=== PATIENT | female | born 1950 | race Caucasian/White ===

== ENCOUNTER 2019-09-09 10:08 | Emergency (ER) | payer MEDICARE ==
--- NOTE | 2019-09-09 10:21 | ERPHSYRPT ---
- History of Present Illness Time Seen by Provider: 09/09/19 10:21 Source: patient, EMS, [facility] records Exam Limitations: clinical condition Physician History: This is a 68-year-old morbidly obese, diabetic white female with a history of CVA, coronary artery disease, and hypertension and is a resident of [facility]. She presents via EMS with increasing confusion. Patient is in the [facility] because of morbid obesity, inability to care for herself, and in renal failure. Patient has been having chronic diarrhea recently. Patient makes a small amount of urine. Patient was due for renal dialysis today at her usual facility in [facility]. However, prior to 6 AM, patient was experiencing a change in her mental status. This is described as increased confusion. Patient did not arrive to our facility till 10:05 AM. We were contacted approximately an hour and a half prior to patient's arrival. Upon arrival to the emergency department, patient' s vital signs were stable, however patient's mental status was decreased. She would intermittently answer a few questions. She was able to move all her extremities. The patient was very lethargic. Patient is DNR Timing/Duration: today Severity: moderate Character of Deficits: new weakness, general (difuse) (Weakness) Deficits: bed-ridden Baseline/Normal Cognition: alert oriented x 3 Current Cognition: alert oriented x 3 Baseline Gait: unable to walk Associated Symptoms: confusion, weakness Allergies/Adverse Reactions: egg Allergy (Severe, Verified 09/09/19 10:56) Swelling morphine Allergy (Verified 04/15/16 15:41) red dye Allergy (Verified 04/15/16 15:41) Home Medications: Torsemide [Demadex] 40 mg PO BID 11/30/15 [History] Apixaban [Eliquis] 5 mg PO BID 01/29/16 [History] Baclofen 10 mg PO TID 01/29/16 [History] Ergocalciferol (Vitamin D2) [Vitamin D] 1 cap PO WEEKLY 01/29/16 [History] Multivitamin W-Minerals/Lutein [Centrum Silver Tablet] 1 tab PO DAILY 01/29/16 [ History] Sertraline HCl 100 mg [Zoloft 100 MG] 100 mg PO DAILY 01/29/16 [History] Simvastatin 40 mg PO DAILY 01/29/16 [History] Zwolle-3 Fatty Acids [Fish Oil] 300 mg PO DAILY 03/29/16 [History] Azelastine Nasal [Astelin Nasal] 30 ml NS DAILY 09/09/19 [History] Cyanocobalamin (Vitamin B-12) [B-12] 1,000 mcg PO DAILY 09/09/19 [History] Cyclosporine [Restasis] 1 each OP DAILY 09/09/19 [History] Diphenhydramine HCl [Banophen] 25 mg PO DAILY 09/09/19 [History] Ferric Citrate [Auryxia] 210 mg PO DAILY 09/09/19 [History] Ferrous Gluconate 324 mg PO TID 09/09/19 [History] Gabapentin [Neurontin] 100 mg PO BID 09/09/19 [History] Glipizide 5 mg [Glucotrol 5 MG] 5 mg PO DAILY 09/09/19 [History] Hydrocodone Bit/Acetaminophen [Hydrocodon-Acetaminoph 7.5-325] 1 each PO QID 03/20 [History] Loperamide HCl [Loperamide] 2 mg PO Q4-6HPRN PRN 09/09/19 [History] Loratadine 10 mg [Claritin 10 mg] 10 mg PO DAILY 09/09/19 [History] Lubiprostone [Amitiza] 24 mcg PO BID 09/09/19 [History] Melatonin/Pyridoxine HCl (B6) [Melatonin 3 mg Tablet] 1 each PO HS 09/09/19 [ History] Metolazone 2.5 mg [Zaroxolyn 2.5 MG] 2.5 mg PO DAILY 09/09/19 [History] Midodrine HCl 5 mg PO BID 09/09/19 [History] Sevelamer Carbonate [Renvela] 800 mg PO DAILY 09/09/19 [History] Sevelamer Carbonate [Renvela] 800 mg PO TID 09/09/19 [History] Tolterodine Tartrate [Detrol LA] 4 mg PO DAILY 09/09/19 [History] Hx Tetanus, Diphtheria Vaccination/Date Given: Yes Hx Influenza Vaccination/Date Given: Yes Hx Pneumococcal Vaccination/Date Given: Yes Travel Risk - International Travel Have you traveled outside of the country in past 3 weeks: No Have you or anyone close to you been diagnosed with or: No Do your reside in a community with a known COVID-19 case?: Yes If Yes where:: [facility] - Coronavirus Screening Symptoms experienced: weakness - Review of Systems Constitutional: Weakness Eyes: No Symptoms Ears, Nose, & Throat: No Symptoms Respiratory: No Symptoms Cardiac: No Symptoms Abdominal/Gastrointestinal: Diarrhea Genitourinary Symptoms: No Symptoms Musculoskeletal: No Symptoms Skin: No Symptoms Neurological: Other (Increased confusion) Psychological: No Symptoms Endocrine: No Symptoms Hematologic/Lymphatic: No Symptoms Immunological/Allergic: No Symptoms All Other Systems: Reviewed and Negative - Past Medical History Pertinent Past Medical History: Yes Neurological History: Stroke ENT History: Cataracts, Macular Degeneration Cardiac History: Coronary Artery Disease, High Cholesterol, Hypertension Respiratory History: No Pertinent History Endocrine Medical History: Diabetes Type II Musculoskeletal History: Degenerative Disk Disease, Osteoarthritis GI Medical History: GERD History: Renal Disease Psycho-Social History: Depression Female Reproductive Disorders: No Pertinent History - Past Surgical History Past Surgical History: Yes Neuro Surgical History: No Pertinent History Cardiac: No Pertinent History Respiratory: No Pertinent History Gastrointestinal: No Pertinent History Genitourinary: No Pertinent History Musculoskeletal: No Pertinent History Female Surgical History: Hysterectomy Other Surgical History: GASTRIC BYPASS - Social History Smoking Status: Unknown if ever smoked Exposure to second hand smoke: No Drug Use: none Patient Lives Alone: No ([place]) - Nursing Vital Signs Nursing Vital Signs: Initial Vital Signs Temperature 99.1 F 09/09/19 10:17 Pulse Rate 75 09/09/19 10:17 Respiratory Rate 22 09/09/19 10:17 Blood Pressure 124/78 09/09/19 10:17 O2 Sat by Pulse Oximetry 99 09/09/19 10:17 Pain Scale Pain Intensity 4 - Miguel Coma Scale Best Eye Response (Miguel): (3) open to voice Best Verbal Response (Miguel): (4) confused conversation Best Motor Response (Miguel): (5) localizes to pain [place] Total: 12 - Physical Exam General Appearance: lethargy, obese Eye Exam: bilateral eye: normal inspection, PERRL, EOMI Ears, Nose, Throat Exam: normal ENT inspection, TMs normal, dry mucous membranes Neck Exam: normal inspection, non-tender, supple, full range of motion Respiratory: normal breath sounds, lungs clear, airway intact, No chest tenderness, No respiratory distress Cardiovascular: regular rate/rhythm, normal heart sounds, normal peripheral pulses Gastrointestinal: soft, normal bowel sounds, No tenderness, No guarding, No rebound Pelvic Exam: not done Rectal Exam: not done Back Exam: normal inspection, normal range of motion, No CVA tenderness, No vertebral tenderness Extremity Exam: normal inspection, normal range of motion, pelvis stable 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: 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, tongue midline Skin Exam: normal color, warm, dry SpO2 Interpretation: borderline oxygenation O2 Delivery: Room Air - Course Nursing assessment & vital signs reviewed: Yes Ordered Tests: Active Orders 24 hr Category Date Time Status Mold Polisher STAT Care 09/09/19 10:34 Active Catheter-Boring Spear STAT Care 09/09/19 10:31 Active IV Insertion STAT Care 09/09/19 10:31 Active NPO (ED) STAT Care 09/09/19 10:32 Active Pulse Oximetry (ED) STAT Care 09/09/19 10:31 Active CHEST 1 VIEW (PORTABLE) Stat Exams 09/09/19 11:11 Completed HEAD WITHOUT CONTRAST [CT] Stat Exams 09/09/19 10:34 Completed BLOOD CULTURE Stat Lab 09/09/19 11:52 Ordered CBC W DIFF Stat Lab 09/09/19 10:50 Completed CMP Stat Lab 09/09/19 10:50 Completed CULTURE,URINE Stat Lab 09/09/19 10:50 Received Lactic Acid Stat Lab 09/09/19 10:41 Completed PROTIME WITH INR Stat Lab 09/09/19 10:50 Completed UA W/RFX UR CULTURE Stat Lab 09/09/19 10:50 Completed Medication Summary Discontinued Medications Generic Name Dose Route Start Last Admin Trade Name Jignesh PRN Reason Stop Dose Admin Ceftriaxone Sodium/Dextrose 1 g in 50 mls @ 100 mls/hr 09/09/19 11:51 11:55 Rocephin 1 Gm-D5w 50 Ml Bag IV 09/09/19 12:20 200 mls/hr STAT ONE 200 mls/hr Administration Ceftriaxone Sodium/Dextrose Confirm 09/09/19 11:54 Rocephin 1 Gm-D5w 50 Ml Bag Administered 09/09/19 11:55 Dose 1 g in 50 mls @ ud IV .STK-MED ONE Lab/Rad Data: Laboratory Result Diagrams 09/09/19 10:50 09/09/19 10:50 Laboratory Results 09/09/19 09/09/19 09/09/19 Range/Units 10:50 10:50 10:50 WBC (4.0-10.5) K/mm3 RBC (4.1-5.4) M/mm3 Hgb (12.0-16.0) gm/dl Hct (35-47) % MCV (78-100) fl MCH (26-32) pg MCHC (32-36) g/dl RDW (11.5-14.0) % Plt Count (150-450) K/mm3 MPV (7.5-11.0) fl Gran % (36.0-66.0) % Eos # (Auto) (0-0.5) Absolute Lymphs (auto) (1.0-4.6) Absolute Monos (auto) (0.0-1.3) Lymphocytes % (24.0-44.0) % Monocytes % (0.0-12.0) % Eosinophils % (0.00-5.0) % Basophils % (0.0-0.4) % Absolute Granulocytes (1.4-6.9) Basophils # (0-0.4) PT 16.5 H (9.95-12.35) SECONDS INR 1.45 (0.8-3.0) Sodium 139 (137-145) mmol/L Potassium 3.4 L (3.5-5.1) mmol/L Chloride 100 (98-107) mmol/L Carbon Dioxide 19 L (22-30) mmol/L Anion Gap 22.9 H (5-15) MEQ/L BUN 72 H (7-17) mg/dL Creatinine 7.26 H (0.52-1.04) mg/dL Estimated GFR 5.9 ML/MIN Glucose 92 (74-106) mg/dL Lactic Acid (0.4-2.0) Calcium 8.2 L (8.4-10.2) mg/dL Total Bilirubin 0.60 (0.2-1.3) mg/dL AST 21 (14-36) U/L ALT 11 (0-35) U/L Alkaline Phosphatase 101 (38-126) U/L Serum Total Protein 7.5 (6.3-8.2) g/dL Albumin 4.1 (3.5-5.0) g/dL Urine Color DARK YELLOW (YELLOW) Urine Appearance TURBID (CLEAR) Urine pH 7.0 (5-6) Ur Specific Hardin 1.010 (1.005-1.025) Urine Protein 30 (Negative) Urine Ketones NEGATIVE (NEGATIVE) Urine Blood SMALL (0-5) Isaak/ul Urine Nitrite NEGATIVE (NEGATIVE) Urine Bilirubin NEGATIVE (NEGATIVE) Urine Urobilinogen NEGATIVE (0-1) mg/dL Ur Leukocyte Esterase LARGE (NEGATIVE) Urine WBC (Auto) >100 (0-5) /HPF Urine RBC (Auto) 6-10 (0-2) /HPF U Epithel Cells (Auto) RARE (FEW) /HPF Urine Bacteria (Auto) PACKED (NEGATIVE) /HPF Urine Mucus (Auto) SLIGHT (NEGATIVE) /HPF Urine Culture Reflexed ORDERED SEPARATELY (NO) Urine Glucose NEGATIVE (NEGATIVE) mg/dL 09/09/19 09/09/19 Range/Units 10:50 10:41 WBC 9.9 (4.0-10.5) K/mm3 RBC 3.35 L (4.1-5.4) M/mm3 Hgb 10.7 L (12.0-16.0) gm/dl Hct 35.5 (35-47) % MCV 106.0 H (78-100) fl MCH 31.9 (26-32) pg MCHC 30.1 L (32-36) g/dl RDW 15.1 H (11.5-14.0) % Plt Count 209 (150-450) K/mm3 MPV 10.4 (7.5-11.0) fl Gran % 79.6 H (36.0-66.0) % Eos # (Auto) 0.17 (0-0.5) Absolute Lymphs (auto) 1.00 (1.0-4.6) Absolute Monos (auto) 0.83 (0.0-1.3) Lymphocytes % 10.1 L (24.0-44.0) % Monocytes % 8.4 (0.0-12.0) % Eosinophils % 1.7 (0.00-5.0) % Basophils % 0.2 (0.0-0.4) % Absolute Granulocytes 7.84 H (1.4-6.9) Basophils # 0.02 (0-0.4) PT (9.95-12.35) SECONDS INR (0.8-3.0) Sodium (137-145) mmol/L Potassium (3.5-5.1) mmol/L Chloride (98-107) mmol/L Carbon Dioxide (22-30) mmol/L Anion Gap (5-15) MEQ/L BUN (7-17) mg/dL Creatinine (0.52-1.04) mg/dL Estimated GFR ML/MIN Glucose (74-106) mg/dL Lactic Acid 0.9 (0.4-2.0) Calcium (8.4-10.2) mg/dL Total Bilirubin (0.2-1.3) mg/dL AST (14-36) U/L ALT (0-35) U/L Alkaline Phosphatase (38-126) U/L Serum Total Protein (6.3-8.2) g/dL Albumin (3.5-5.0) g/dL Urine Color (YELLOW) Urine Appearance (CLEAR) Urine pH (5-6) Ur Specific Hardin (1.005-1.025) Urine Protein (Negative) Urine Ketones (NEGATIVE) Urine Blood (0-5) Isaak/ul Urine Nitrite (NEGATIVE) Urine Bilirubin (NEGATIVE) Urine Urobilinogen (0-1) mg/dL Ur Leukocyte Esterase (NEGATIVE) Urine WBC (Auto) (0-5) /HPF Urine RBC (Auto) (0-2) /HPF U Epithel Cells (Auto) (FEW) /HPF Urine Bacteria (Auto) (NEGATIVE) /HPF Urine Mucus (Auto) (NEGATIVE) /HPF Urine Culture Reflexed (NO) Urine Glucose (NEGATIVE) mg/dL - Progress Progress Note: 09/09/19 11:13 CAT scan of the head reveals no acute intracranial findings. There is senile brain. Old right temporoparietal infarct 09/09/19 11:48 Chest x-ray shows stable cardiomegaly. There is no evidence of any pneumonic process or signs of CHF. 09/09/19 12:19 Medical decision making: This patient has renal failure and is in need of dialysis. She was brought here because of confusion. Patient has a significant urinary tract infection which may be causing her lethargy. The CAT scan of her head does not show any acute intracranial findings suggesting a cerebrovascular accident that is acute. 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 We are treating her urinary tract infection with Rocephin. - Departure Departure Disposition: Transfer Clinical Impression: Urinary tract infection, Confusion, Lethargy, Renal failure Condition: Fair Critical Care Time: Yes Critical Care Time(excluding separately billable procedures): Critical 30-74 mins Referrals: KAREN BENDER [Primary Care Provider] -
[2019-09-09 10:52] LABS: Absolute Neutrophil Ct (ANC) 7.84 (1.4-6.9); BASOPHIL % 0.2 % (0.0-0.4); Basophil (Absolute #) 0.02 (0-0.4); Eosinophil % 1.7 % (0.00-5.0); Eosinophil (Absolute #) 0.17 (0-0.5); Hematocrit 35.5 % (35-47); Hemoglobin 10.7 gm/dl (12.0-16.0); Lymphocytes % 10.1 % (24.0-44.0); Mean Corpuscular Hemoglobin 31.9 pg (26-32); Mean Corpuscular Hgb Concent. 30.1 g/dl (32-36); Mean Platelet Volume 10.4 fl (7.5-11.0); Monocyte (Absolute #) 0.83 (0.0-1.3); Monocytes % 8.4 % (0.0-12.0); Neutrophil % 79.6 % (36.0-66.0); Platelet Count 209 K/mm3 (150-450); Red Blood Count 3.35 M/mm3 (4.1-5.4); Red Cell Distribution Width 15.1 % (11.5-14.0); White Blood Count 9.9 K/mm3 (4.0-10.5)
[2019-09-09 10:58] LABS: Appearance TURBID (CLEAR); Bacteria PACKED /HPF (NEGATIVE); Bilirubin NEGATIVE (NEGATIVE); Blood SMALL Ery/ul (0-5); Epithelial Cells RARE /HPF (FEW); Glucose NEGATIVE (NEGATIVE); Ketones NEGATIVE (NEGATIVE); Leukocyte Esterase LARGE (NEGATIVE); Mucus SLIGHT /HPF (NEGATIVE); Nitrite NEGATIVE (NEGATIVE); Protein,Urine Dip 30 (Negative); Urobilinogen NEGATIVE mg/dL (0-1); WBC >100 /HPF (0-5)
[2019-09-09 11:02] LABS: INR 1.45 (0.8-3.0); PROTIME 16.5 SECONDS (9.95-12.35)
[2019-09-09 11:07] LABS: ALBUMIN 4.1 g/dL (3.5-5.0); ANION GAP 22.9 MEQ/L (5-15); BILIRUBIN,TOTAL 0.6 mg/dL (0.2-1.3); Calcium 8.2 mg/dL (8.4-10.2); Creatinine 1 7.26 mg/dL (0.52-1.04); Potassium 3.4 mmol/L (3.5-5.1); Total Protein 7.5 g/dL (6.3-8.2)
--- NOTE | 2019-09-09 11:20 | XRAY ---
Indication: Fever and confusion. Multiple contiguous axial images obtained through the head without contrast. Comparison: April 15, 2016. There is again age-appropriate global atrophy, minimal periventricular degenerative micro-ischemia, and small focus old right posterior temporoparietal infarct. Again no acute intracranial hemorrhage, hydrocephalus, or mass effect. Fourth ventricle is midline. Bony calvarium intact. Visualized paranasal sinuses and mastoid air cells are clear. Impression: Continued nonacute senile brain with old right temporoparietal infarct.
--- NOTE | 2019-09-09 11:23 | XRAY ---
Indication: Cough. Comparison: April 15, 2016. Portable chest again demonstrates cardiomegaly with new left midlung fibrosis/scarring. No focal infiltrate, consolidation, or large effusion. Bony thorax intact again with mild degenerative changes. Impression: Stable cardiomegaly. Negative for acute pneumonic process or CHF.
[2019-09-09] MEDS ORDERED: ROCEPHIN 1 Gm-D5w 50 ml Bag** 1 G/50 ML IVPB IV ONE ×2 (11:51→11:54)
[2019-09-09 13:14] VITALS: BP 103/68; PULSE 77; O2SAT 95
== END 2019-09-09 13:18 | disposition short-term general hospital (02) ==
LOC: ED 10:08
DX: N39.0 Urinary tract infection, site not specified (principal); R41.0 Disorientation, unspecified; R53.83 Other fatigue; N19 Unspecified kidney failure; I10 Essential (primary) hypertension; I25.10 Atherosclerotic heart disease of native coronary artery without angina pectoris; E78.00 Pure hypercholesterolemia, unspecified; K21.9 Gastro-esophageal reflux disease without esophagitis; M19.90 Unspecified osteoarthritis, unspecified site; F32.9 Major depressive disorder, single episode, unspecified
CPT/HCPCS: 36000; 36415; 51702; 70450; 71045; 80053; 81001; 82140; 83605; 85025; 85610; 87040; 87077; 87086; 87186; 93041; 94760; 96365; 99285; 99291; J0696

== ENCOUNTER 2020-10-07 07:02 | Emergency (ER) | payer MEDICARE ==
--- NOTE | 2020-10-07 07:23 | ERPHSYRPT ---
- History of Present Illness Time Seen by Provider: 10/07/20 07:10 Source: EMS, long term records, old records Exam Limitations: clinical condition Physician History: This is a 70-year-old morbidly obese female resident of [facility] who was brought in by EMS service for altered level of consciousness and hypotension. Patient symptoms actually started last evening approximately 10 PM per long term notes. She was complaining of nausea vomiting and weakness. Patient undergoes Monday and Monday renal dialysis. She did go to her last dialysis session. Patient has a history of diabetes, acute CVA, coronary artery disease, hypertension and chronic anemia. Patient is a DNR status. Patient arrives very lethargic. She responds to painful stimuli but does not answer questions or follow directions. Patient is on Eliquis. Timing/Duration: today Severity: moderate Associated Symptoms: denies symptoms Allergies/Adverse Reactions: egg Allergy (Severe, Verified 10/07/20 08:04) Swelling morphine Allergy (Verified 10/07/20 08:04) red dye Allergy (Verified 10/07/20 08:04) Home Medications: Apixaban [Eliquis] 2.5 mg PO BID 01/29/16 [History] Baclofen 10 mg PO BID 01/29/16 [History] Ergocalciferol (Vitamin D2) [Vitamin D] 1 cap PO WEEKLY 01/29/16 [History] Multivitamin W-Minerals/Lutein [Centrum Silver Tablet] 1 tab PO DAILY 01/29/16 [History] Azelastine Nasal [Astelin Nasal] 1 spray NS DAILY 09/09/19 [History] Cyanocobalamin (Vitamin B-12) [B-12] 1,000 mcg SQ UD 09/09/19 [History] Diphenhydramine HCl [Banophen] 25 mg PO BID 09/09/19 [History] Ferrous Gluconate 324 mg PO TID 09/09/19 [History] Gabapentin [Neurontin] 200 mg PO TID 09/09/19 [History] Glipizide 5 mg [Glucotrol 5 MG] 5 mg PO DAILY 09/09/19 [History] Loperamide HCl [Loperamide] 2 mg PO Q4-6HPRN PRN 09/09/19 [History] Loratadine 10 mg [Claritin 10 mg] 10 mg PO DAILY 09/09/19 [History] Midodrine HCl 10 mg PO TID 09/09/19 [History] Sevelamer Carbonate [Renvela] 2,400 mg PO TIDWM 09/09/19 [History] Sevelamer Carbonate [Renvela] 800 mg PO HS 09/09/19 [History] Tolterodine Tartrate [Detrol LA] 4 mg PO DAILY 09/09/19 [History] Allopurinol 300 mg [Zyloprim 300 mg] 300 mg PO DAILY 10/07/20 [History] Cyclosporine [Restasis] 1 each OP BID 10/07/20 [History] Duloxetine HCl 30 mg [Cymbalta 30 MG Capsule] 30 mg PO DAILY 10/07/20 [History] Famotidine [Pepcid] 40 mg PO BID 10/07/20 [History] Guaifenesin [Mucus Relief] 200 mg PO BID 10/07/20 [History] Linaclotide [Linzess] 145 mcg PO DAILY 10/07/20 [History] Loratadine 10 mg [Claritin 10 mg] 10 mg PO DAILY 10/07/20 [History] Metolazone 2.5 mg [Zaroxolyn 2.5 MG] 2.5 mg PO BID 10/07/20 [History] [place]-3/Dha/Epa/Fish Oil [Fish Oil 500 mg Softgel] 2 each PO DAILY 10/07/20 [History] Simvastatin [Zocor] 40 mg PO HS 10/07/20 [History] Sucroferric Oxyhydroxide [Velphoro] 1,000 mg PO TIDWM 10/07/20 [History] Sulfamethoxazole/Trimethoprim [Bactrim 400-80 mg Tablet] 1 each PO DAILY 10/07/20 [History] Hx Tetanus, Diphtheria Vaccination/Date Given: Yes Hx Influenza Vaccination/Date Given: Yes Hx Pneumococcal Vaccination/Date Given: Yes Travel Risk - International Travel Have you traveled outside of the country in past 3 weeks: No - Coronavirus Screening Are you exhibiting any of the following symptoms?: No Close contact with a COVID-19 positive Pt in past 14-21 Days: No - Review of Systems Constitutional: Lethargy Eyes: No Symptoms Ears, Nose, & Throat: No Symptoms Respiratory: No Symptoms Cardiac: No Symptoms Abdominal/Gastrointestinal: No Symptoms Genitourinary Symptoms: No Symptoms Musculoskeletal: No Symptoms Skin: No Symptoms Neurological: Lethargy Psychological: No Symptoms Endocrine: No Symptoms Hematologic/Lymphatic: No Symptoms Immunological/Allergic: No Symptoms All Other Systems: Reviewed and Negative - Past Medical History Pertinent Past Medical History: Yes Neurological History: Stroke ENT History: Cataracts, Macular Degeneration Cardiac History: Coronary Artery Disease, High Cholesterol, Hypertension Respiratory History: No Pertinent History Endocrine Medical History: Diabetes Type II Musculoskeletal History: Degenerative Disk Disease, Osteoarthritis GI Medical History: GERD History: Renal Disease Psycho-Social History: Depression Female Reproductive Disorders: No Pertinent History - Past Surgical History Past Surgical History: Yes Neuro Surgical History: No Pertinent History Cardiac: No Pertinent History Respiratory: No Pertinent History Gastrointestinal: No Pertinent History Genitourinary: No Pertinent History Musculoskeletal: No Pertinent History Female Surgical History: Hysterectomy Other Surgical History: GASTRIC BYPASS - Social History Smoking Status: Unknown if ever smoked Exposure to second hand smoke: No Drug Use: none Patient Lives Alone: No ([place]) - Nursing Vital Signs Nursing Vital Signs: Initial Vital Signs Temperature 99.5 F 10/07/20 07:22 Pulse Rate 105 H 10/07/20 07:22 Blood Pressure 80/40 10/07/20 07:22 O2 Sat by Pulse Oximetry 95 10/07/20 07:22 Pain Scale Pain Intensity 0 - Physical Exam General Appearance: lethargy, obese Eye Exam: PERRL/EOMI, eyes nml inspection Ears, Nose, Throat Exam: dry mucous membranes Neck Exam: normal inspection, non-tender, supple, full range of motion Respiratory Exam: normal breath sounds, lungs clear, airway intact, No chest tenderness, No respiratory distress Cardiovascular Exam: regular rate/rhythm, normal heart sounds, normal peripheral pulses Gastrointestinal/Abdomen Exam: distention Pelvic Exam: not done Rectal Exam: not done Back Exam: normal inspection, No CVA tenderness, No vertebral tenderness Extremity Exam: normal inspection, normal range of motion, pelvis stable Neurologic Exam: other (Responds to painful stimuli. Moves all extremities randomly. Does not follow directions. Does not answer questions) Skin Exam: pale (Dentalized) Lymphatic Exam: No adenopathy SpO2 Interpretation: normal O2 Delivery: Room Air - Course Nursing assessment & vital signs reviewed: Yes EKG Interpreted by Me: RATE (96), A-fib (This is persistent when compared to EKG dated 04/15/2016), LAFB (This is new when compared to the EKG dated 04/15/2016), Other (Low voltage is persistent when compared to EKG 04/15/2016. There is no evidence of any acute ischemic changes on today's EKG.) Ordered Tests: Active Orders 24 hr Category Date Time Status EKG-ER Only STAT Care 10/07/20 07:23 Active IV Insertion STAT Care 10/07/20 07:23 Active NPO (ED) STAT Care 10/07/20 07:23 Active Pulse Oximetry (ED) STAT Care 10/07/20 07:23 Active ABDOMEN AND PELVIS W/0 CONTRAS [CT] Stat Exams 10/07/20 08:20 Completed CHEST 1 VIEW (PORTABLE) Stat Exams 10/07/20 07:24 Completed HEAD WITHOUT CONTRAST [CT] Stat Exams 10/07/20 07:24 Completed AMYLASE Stat Lab 10/07/20 07:52 Completed CBC W DIFF Stat Lab 10/07/20 08:10 Results CMP Stat Lab 10/07/20 07:52 Completed CULTURE,URINE Stat Lab 10/07/20 07:24 Ordered LIPASE Stat Lab 10/07/20 07:52 Completed Lactic Acid Stat Lab 10/07/20 07:25 Completed Lactic Acid Stat Lab 10/07/20 10:07 Completed Manual Differential NC Stat Lab 10/07/20 08:10 Results POCT GLUCOSE Stat Lab 10/07/20 10:17 Completed Pathologist Review Stat Lab 10/07/20 08:10 Results TROPONIN Q3H Lab 10/07/20 07:52 Completed TROPONIN Q3H Lab 10/07/20 10:50 Received TROPONIN Q3H Lab 10/07/20 13:30 Ordered TROPONIN Q3H Lab 10/07/20 16:30 Ordered TROPONIN Q3H Lab 10/07/20 19:30 Ordered UA W/RFX UR CULTURE Stat Lab 10/07/20 07:23 Ordered Medication Summary Generic Name Dose Route Start Last Admin Trade Name Freq PRN Reason Stop Dose Admin Sodium Chloride 1,000 mls @ 100 mls/hr 10/07/20 07:30 10/07/20 08:23 Sodium Chloride 0.9% 1000 Ml IV 11/06/20 07:29 100 mls/hr .Q10H KAYODE Administration Discontinued Medications Generic Name Dose Route Start Last Admin Trade Name Jignesh PRN Reason Stop Dose Admin Dextrose 50 ml 10/07/20 08:22 10/07/20 10:05 D50w 50 Ml Abboject IV 10/07/20 08:23 50 ml STAT ONE Administration Dextrose Confirm 10/07/20 08:22 D50w 50 Ml Abboject Administered 10/07/20 08:23 Dose 50 ml IV .STK-MED ONE Meropenem 1 g/ Sodium Chloride 100 mls @ 200 mls/hr 10/07/20 08:22 10/07/20 08:27 IV 10/07/20 08:51 200 mls/hr STAT ONE Administration Sodium Chloride Confirm 10/07/20 08:27 Sodium Chloride 100ml Mini-Bag Plus Administered 10/07/20 08:28 Dose 100 mls @ ud IV .STK-MED ONE Meropenem Confirm 10/07/20 08:26 Merrem 1 Gm Administered 10/07/20 08:27 Dose 1 g IV .STK-MED ONE Lab/Rad Data: Laboratory Result Diagrams 10/07/20 08:10 10/07/20 07:52 Laboratory Results 10/07/20 10/07/20 10/07/20 Range/Units 10:17 10:07 08:10 WBC 32.6 H* (4.0-10.5) K/mm3 RBC 3.43 L (4.1-5.4) M/mm3 Hgb 10.6 L (12.0-16.0) gm/dl Hct 36.8 (35-47) % MCV 107.3 H (78-100) fl MCH 30.9 (26-32) pg MCHC 28.8 L (32-36) g/dl RDW 18.1 H (11.5-14.0) % Plt Count 159 (150-450) K/mm3 MPV 10.7 (7.5-11.0) fl Segmented Neutrophils 72 H (36.0-66.0) % Band Neutrophils 20 H (0.0-2.0) % Lymphocytes (Manual) 6 L (24-44) % Monocytes (Manual) 2 (0.0-12.0) % Toxic Granulation 2+ Platelet Estimate NORMAL (NORMAL) RBC Morphology ABNORMAL Polychromasia 1+ Anisocytosis 1+ Smear Path Review Pending Sodium (137-145) mmol/L Potassium (3.5-5.1) mmol/L Chloride (98-107) mmol/L Carbon Dioxide (22-30) mmol/L Anion Gap (5-15) MEQ/L BUN (7-17) mg/dL Creatinine (0.52-1.04) mg/dL Estimated GFR ML/MIN Glucose (74-106) mg/dL POC Glucometer 98 (74 to 106) mg/dL Lactic Acid 4.2 H (0.4-2.0) Calcium (8.4-10.2) mg/dL Total Bilirubin (0.2-1.3) mg/dL AST (14-36) U/L ALT (0-35) U/L Alkaline Phosphatase (38-126) U/L Ammonia (9-30) umol/L Troponin I (0.000-0.034) ng/mL Serum Total Protein (6.3-8.2) g/dL Albumin (3.5-5.0) g/dL Amylase (30-110) U/L Lipase (23-300) U/L 10/07/20 10/07/20 10/07/20 Range/Units 07:52 07:52 07:52 WBC (4.0-10.5) K/mm3 RBC (4.1-5.4) M/mm3 Hgb (12.0-16.0) gm/dl Hct (35-47) % MCV (78-100) fl MCH (26-32) pg MCHC (32-36) g/dl RDW (11.5-14.0) % Plt Count (150-450) K/mm3 MPV (7.5-11.0) fl Segmented Neutrophils (36.0-66.0) % Band Neutrophils (0.0-2.0) % Lymphocytes (Manual) (24-44) % Monocytes (Manual) (0.0-12.0) % Toxic Granulation Platelet Estimate (NORMAL) RBC Morphology Polychromasia Anisocytosis Smear Path Review Sodium 136 L (137-145) mmol/L Potassium 3.5 (3.5-5.1) mmol/L Chloride 96 L (98-107) mmol/L Carbon Dioxide 25 (22-30) mmol/L Anion Gap 18.4 H (5-15) MEQ/L BUN 34 H (7-17) mg/dL Creatinine 4.08 H (0.52-1.04) mg/dL Estimated GFR 11.4 ML/MIN Glucose 58 L (74-106) mg/dL POC Glucometer (74 to 106) mg/dL Lactic Acid (0.4-2.0) Calcium 9.2 (8.4-10.2) mg/dL Total Bilirubin 4.40 H (0.2-1.3) mg/dL AST 161 H (14-36) U/L ALT 79 H (0-35) U/L Alkaline Phosphatase 448 H (38-126) U/L Ammonia 19 (9-30) umol/L Troponin I 0.077 H* (0.000-0.034) ng/mL Serum Total Protein 6.4 (6.3-8.2) g/dL Albumin 3.5 (3.5-5.0) g/dL Amylase 242 H (30-110) U/L Lipase 1152 H (23-300) U/L 10/07/20 Range/Units 07:25 WBC (4.0-10.5) K/mm3 RBC (4.1-5.4) M/mm3 Hgb (12.0-16.0) gm/dl Hct (35-47) % MCV (78-100) fl MCH (26-32) pg MCHC (32-36) g/dl RDW (11.5-14.0) % Plt Count (150-450) K/mm3 MPV (7.5-11.0) fl Segmented Neutrophils (36.0-66.0) % Band Neutrophils (0.0-2.0) % Lymphocytes (Manual) (24-44) % Monocytes (Manual) (0.0-12.0) % Toxic Granulation Platelet Estimate (NORMAL) RBC Morphology Polychromasia Anisocytosis Smear Path Review Sodium (137-145) mmol/L Potassium (3.5-5.1) mmol/L Chloride (98-107) mmol/L Carbon Dioxide (22-30) mmol/L Anion Gap (5-15) MEQ/L BUN (7-17) mg/dL Creatinine (0.52-1.04) mg/dL Estimated GFR ML/MIN Glucose (74-106) mg/dL POC Glucometer (74 to 106) mg/dL Lactic Acid 3.7 H (0.4-2.0) Calcium (8.4-10.2) mg/dL Total Bilirubin (0.2-1.3) mg/dL AST (14-36) U/L ALT (0-35) U/L Alkaline Phosphatase (38-126) U/L Ammonia (9-30) umol/L Troponin I (0.000-0.034) ng/mL Serum Total Protein (6.3-8.2) g/dL Albumin (3.5-5.0) g/dL Amylase (30-110) U/L Lipase (23-300) U/L - Progress Progress: unchanged Progress Note: 10/07/20 08:56 CAT scan of the abdomen and pelvis without contrast shows mild fecal stasis and distended urinary bladder. CAT scan of the head without contrast shows motion artifact. Grossly nonacute senile brain. Old right temporal and old right parietal infarct. Chest x-ray shows cardiomegaly, scarring and chronic changes. 10/07/20 11:23 Medical decision making: This patient requires transfer to a facility where they have cardiology, infectious disease, nephrology, cardiology and the ability to perform kidney dialysis. Patient is moving all her extremities now and is slightly responsive. I spoke with Dr. Davalos, the patient's tipple oiler. He accepts the patient in transfer to [facility] in [facility]. Discussed with .: Other (Dexter (tipple oiler)) - Departure Clinical Impression: Altered mental status, Hypotension, Renal failure, Elevated liver enzymes, Leukocytosis, Sepsis associated hypotension, Pancreatitis Condition: Critical Critical Care Time: Yes Critical Care Time(excluding separately billable procedures): Critical 75-104 mins Referrals: KAREN BENDER [Primary Care Provider] -
[2020-10-07] MEDS ORDERED: Sodium Chloride 0.9% 1000 ML 1,000 ML IV SCH ×2 (07:30→13:15)
[2020-10-07 08:07] LABS: Hematocrit 36.8 % (35-47); Hemoglobin 10.6 gm/dl (12.0-16.0); Mean Cell Volume 107.3 fl (78-100); Mean Corpuscular Hemoglobin 30.9 pg (26-32); Mean Corpuscular Hgb Concent. 28.8 g/dl (32-36); Mean Platelet Volume 10.7 fl (7.5-11.0); Platelet Count 159 K/mm3 (150-450); Red Blood Count 3.43 M/mm3 (4.1-5.4); Red Cell Distribution Width 18.1 % (11.5-14.0)
[2020-10-07 08:14] LABS: White Blood Count 32.6 K/mm3 (4.0-10.5)
[2020-10-07] MEDS ORDERED: Sodium Chloride 0.9% 1000 ML 1,000 ML ONE ×2 (08:21→13:16)
[2020-10-07] MEDS ORDERED: Merrem 1 GM 1 G in Sodium Chloride 100ML MINI-BAG PLUS 100 ML IV ONE (08:22)
[2020-10-07] MEDS ORDERED: D50W 50 ml Abboject IV ONE ×2 (08:22)
[2020-10-07 08:24] LABS: ALBUMIN 3.5 g/dL (3.5-5.0); ANION GAP 18.4 MEQ/L (5-15); BILIRUBIN,TOTAL 4.4 mg/dL (0.2-1.3); Calcium 9.2 mg/dL (8.4-10.2); Creatinine 1 4.08 mg/dL (0.52-1.04); EST GLOMERULAR FILTRATION RATE 11.4 ML/MIN; Potassium 3.5 mmol/L (3.5-5.1); Total Protein 6.4 g/dL (6.3-8.2)
[2020-10-07] MEDS ORDERED: Merrem 1 GM IV ONE (08:26)
[2020-10-07] MEDS ORDERED: Sodium Chloride 100ML MINI-BAG PLUS 100 ML IV ONE (08:27)
--- NOTE | 2020-10-07 08:34 | XRAY ---
Indication: Acute mental status change. Multiple contiguous axial images obtained through the head without contrast. Comparison: September 09, 2019. Study slightly degraded by motion artifact. There is again age-appropriate global atrophy, mild periventricular degenerative micro-ischemia, and small focus old right posterior temporoparietal infarct. New finding small old infarct right parietal lobe posteriorly. Again no acute intracranial hemorrhage, hydrocephalus, or mass effect. Fourth ventricle is midline. Bony calvarium intact. Visualized paranasal sinuses and mastoid air cells are clear. Impression: Motion artifact. Grossly nonacute senile brain with old right temporal and right parietal infarcts.
--- NOTE | 2020-10-07 08:42 | XRAY ---
Indication: Abdomen bloating. Renal failure. Multiple contiguous axial images obtained through the abdomen and pelvis without contrast. Comparison: None Beam artifact from patient's arms and mild respiration artifact. Lung bases demonstrates bilateral subsegmental atelectasis/scarring and tiny left effusion. Heart is enlarged. Previous bariatric surgery. Noncontrasted stomach and bowel loops appear nonobstructed. Appendix not seen. There is mild diffuse scattered colonic fecal debris with mild rectal impaction. Markedly distended gallbladder. Distal common bile duct demonstrates a few choledochal stones, largest 1.2 cm. Mild biliary tree prominence with common bile duct distended up to 1.5 cm. No free fluid/air. Incidental 2 cm left adrenal adenoma, bilateral renal atrophy, and empty urinary bladder with Spear catheter in situ. Remaining liver, pancreas, spleen, right adrenal gland, and ureters unremarkable for noncontrast exam. Mild scattered aortoiliac calcifications without AAA. Osseous structures grossly intact with osteopenia, moderate multilevel thoracolumbar degenerative spondylosis, mild bilateral hip degenerative arthropathy, and mild levoscoliosis centered at L3. Impression: 1. Limited exam due to respiration and beam artifact. 2. Markedly distended urinary bladder with choledochal calculi and biliary distention. 3. Mild fecal stasis with mild rectal impaction. 4. Cardiomegaly with tiny left effusion. Rule out cardiac decompensation/fluid overload. 5. Incidental left adrenal adenoma, bilateral renal atrophy, Spear catheter in situ, and chronic bony findings.
--- NOTE | 2020-10-07 08:42 | XRAY ---
Indication: Altered mental status. Comparison: September 09, 2019. Portable chest again demonstrates cardiomegaly with left mid to lower lung fibrosis/scarring. Remaining heart and lungs unremarkable. Bony thorax intact again with mild degenerative changes.
[2020-10-07 09:16] LABS: ANISOCYTOSIS 1+; BAND 20 % (0.0-2.0); Lymphocytes 6 % (24-44); Monocyte 2 % (0.0-12.0); Neutrophils 72 % (36.0-66.0); Polychromasia 1+; Total Cells Counted 100; Toxic Granulation 2+
[2020-10-07 09:17] LABS: Platelet Estimate NORMAL (NORMAL)
[2020-10-07 12:07] VITALS: O2SAT 96
[2020-10-07] MEDS ORDERED: LEVOPHED 4 MG/4 ML 4,000 MCG in Dextrose 5%/Water IV Soln. 500 ML 500 ML IV PRN (13:15)
[2020-10-07 13:28] VITALS: BP 82/69; PULSE 104
== END 2020-10-07 14:29 | disposition short-term general hospital (02) ==
LOC: ED 07:02
DX: I95.9 Hypotension, unspecified (principal); N19 Unspecified kidney failure; R74.8 Abnormal levels of other serum enzymes; D72.829 Elevated white blood cell count, unspecified; A41.9 Sepsis, unspecified organism; K85.90 Acute pancreatitis without necrosis or infection, unspecified; Z79.01 Long term (current) use of anticoagulants; Z79.899 Other long term (current) drug therapy; I10 Essential (primary) hypertension; E11.9 Type 2 diabetes mellitus without complications; I25.10 Atherosclerotic heart disease of native coronary artery without angina pectoris; E78.00 Pure hypercholesterolemia, unspecified
CPT/HCPCS: 36415; 70450; 71045; 74176; 80053; 82140; 82150; 82947; 83605; 83690; 84484; 85025; 93005; 94760; 96365; 96367; 96374; 99285; 99291; 99292